=== PATIENT | male | born 1960 | race Caucasian/White ===

== ENCOUNTER 2017-11-01 10:48 | Inpatient (IN) | payer BC ==
[2017-11-01] MEDS ORDERED: ASPIRIN 81 MG CHEWABLE TABLETS PO ONE (12:28)
[2017-11-01 12:36] LABS: BASO % 0.7 % (0-2.0); EOS % 0.7 % (0-4.5); MCH 28.1 pg (25.7-33.7); MCHC 32.7 g/dl (32.0-35.9); MEAN CELL VOLUME 85.9 fl (80-96); MEAN PLT VOLUME 8.1 fl (7.5-11.1); NEUT % 75.7 % (42.8-82.8); PLATELET COUNT 247 K/MM3 (134-434); RDW 13.5 % (11.9-15.9); WHITE BLOOD COUNT 9.9 K/mm3 (4.0-10.0)
--- NOTE | 2017-11-01 12:37 | PDOC ---
History of Present Illness - History of Present Illness Initial Comments: 11/01/17 12:43 The patient is a 56 year old male, with a significant past medical history of CAD with cardiac stents, diabetes mellitus, gouts and hypertension who presents to the emergency department with chest pain and dizziness. Patient was brought in by radiology, states he began experiencing chest pain while doing a stress test. However he states that he has been experiencing chest pain that last for 2 mins every 2-3 days for 3 months. He states he took 1 baby aspirin today . He describes his chest pain and tightness as sharp, crushing, and radiates to his, left arm and shoulder and back. He also reports is experiencing SOB, diaphoresis. Reports no current chest pain. He denies any recent fevers, chills, headache. He denies any recent nausea, vomit, diarrhea or constipation. He denies any recent dysuria, frequency, urgency or hematuria. Allergies: NKA Past surgical history: Cardiac stents (7) Social History: Nonsmoker. Denies EtOH use and recreational drug use. Roadway Engineer: Nelly David 11/01/17 12:46 <Betsy Andres - Last Filed: 11/01/17 12:46> - General History Source: Patient Exam Limitations: No Limitations <Dae Shah - Last Filed: 11/01/17 17:22> - General Chief Complaint: Lightheaded Stated Complaint: CHEST PAIN,denies at this time. Time Seen by Provider: 11/01/17 11:55 Past History <Betsy Andres - Last Filed: 11/01/17 12:46> - Past Medical History Cardiac Disorders: Yes (stent 7) COPD: No Diabetes: Yes GI Disorders: Yes (celiac dis) HTN: Yes Psychiatric Problems: Yes (panic attacks) Other medical history: obesity,gout - Surgical History Abdominal Surgery: No (denies) - Suicide/Smoking/Psychosocial Hx Smoking History: Never smoked Information on smoking cessation initiated: No Hx Alcohol Use: No Drug/Substance Use Hx: No Substance Use Type: None <Dae Shah - Last Filed: 11/01/17 17:22> - Past Medical History Allergies/Adverse Reactions: Allergies Allergy/AdvReac Type Severity Reaction Status Date / Time No Known Allergies Allergy Verified 11/01/17 11:04 Home Medications: Ambulatory Orders Allopurinol [Zyloprim -] 100 mg PO DAILY 11/01/17 Aspirin [ASA -] 81 mg PO DAILY 11/01/17 Colchicine 0.6 mg PO DAILY PRN 11/01/17 Insulin (Novolog) [Novolog Flexpen -] 15 units SCJ AM 11/01/17 Insulin Glargine,Hum.rec.anlog [Lantus (10mL VIAL) -] 15 units SCJ HS 11/01/17 Metoprolol Tartrate 50 mg PO BID 11/01/17 Review of Systems - Review of Systems Comments:: 11/01/17 12:43 GENERAL/CONSTITUTIONAL: +diaphoresis. No fever or chills. No weakness. HEAD, EYES, EARS, NOSE AND THROAT: No change in vision. No ear pain or discharge. No sore throat. CARDIOVASCULAR: +chest pain. +shortness of breath. RESPIRATORY: No cough, wheezing, or hemoptysis. GASTROINTESTINAL: No nausea, vomiting, diarrhea or constipation. GENITOURINARY: No dysuria, frequency, or change in urination. MUSCULOSKELETAL: No joint or muscle swelling or pain. No neck or back pain. SKIN: No rash NEUROLOGIC: No headache, vertigo, loss of consciousness, or change in strength/ sensation. ENDOCRINE: No increased thirst. No abnormal weight change. HEMATOLOGIC/LYMPHATIC: No anemia, easy bleeding, or history of blood clots. ALLERGIC/IMMUNOLOGIC: No hives or skin allergy. <Betsy Andres - Last Filed: 11/01/17 12:46> *Physical Exam - Vital Signs Last Vital Signs Temp Pulse Resp BP Pulse Ox 97.5 F L 71 18 143/89 99 11/01/17 11:01 11/01/17 11:01 11/01/17 11:01 11/01/17 11:01 11/01/17 11:50 - Physical Exam Comments: 11/01/17 12:44 GENERAL: Awake, alert, and fully oriented, in no acute distress HEAD: No signs of trauma EYES: PERRLA, EOMI, sclera anicteric, conjunctiva clear ENT: Auricles normal inspection, hearing grossly normal, nares patent, oropharynx clear without exudates. Moist mucosa NECK: Normal ROM, supple, no lymphadenopathy, JVD, or masses LUNGS: Breath sounds equal, clear to auscultation bilaterally. No wheezes, and no crackles HEART: Regular rate and rhythm, normal S1 and S2, no murmurs, rubs or gallops ABDOMEN: Soft, nontender, normoactive bowel sounds. No guarding, no rebound. No masses EXTREMITIES: Normal range of motion, no edema. No clubbing or cyanosis. No cords, erythema, or tenderness NEUROLOGICAL: Cranial nerves II through XII grossly intact. Normal speech, normal gait SKIN: Warm, Dry, normal turgor, no rashes or lesions noted. <Betsy Andres - Last Filed: 11/01/17 12:46> - Vital Signs Last Vital Signs Temp Pulse Resp BP Pulse Ox 97.5 F L 71 18 143/89 99 11/01/17 11:01 11/01/17 11:01 11/01/17 11:01 11/01/17 11:01 11/01/17 11:50 <Dae Shah - Last Filed: 11/01/17 17:22> Heart Score/ECG Review - History History: Highly suspicious - Electrocardiogram EKG: Non specific repolarization disturbance - Age Age: 45-65 - Risk Factors Based on the list above the patient has:: >/=3 risk factors or Hx atherosclerotic disease #1 ECG reviewed & interpreted by me at: 10:55 11/01/17 12:38 NSR 76, no std/don, Q wave III, TWI V4-V5, QTC 375 msec <Dae Shah - Last Filed: 11/01/17 17:22> ED Treatment Course - LABORATORY CBC & Chemistry Diagram: 11/01/17 12:30 11/01/17 12:30 <Betsy Andres - Last Filed: 11/01/17 12:46> - LABORATORY CBC & Chemistry Diagram: 11/01/17 12:30 11/01/17 12:30 - RADIOLOGY Radiology Studies Ordered: Category Date Time Status CHEST X-RAY PORTABLE* [RAD] Stat Radiology 11/01/17 12:22 Ordered <Dae Shah - Last Filed: 11/01/17 17:22> Medical Decision Making - Medical Decision Making 11/01/17 12:39 A portion of this note was documented by scribe services under my direction. I have reviewed the details of the note, within reason, and agree with the documentation with the following case summary and management plan written by me. Patient treated in the ED. Nursing notes are reviewed and incorporated into the medical decision-making. Vital signs reviewed. Peripheral IV access obtained by the nurse, laboratory studies are drawn and sent, reviewed and interpreted by myself. Vital Signs Temp Pulse Resp BP Pulse Ox 97.5 F L 71 18 143/89 99 11/01/17 11:01 11/01/17 11:01 11/01/17 11:01 11/01/17 11:01 11/01/17 11:50 56-year-old male with past medical history of hypertension, diabetes, gout, coronary disease status post 7 stents presents with chest pain from stress test. The patient was undergoing an elective outpatient stress test when the patient developed midsternal chest pressure radiating to left shoulder and left arm with short of breath and diaphoresis and lasted 2 minutes. The patient did not have an injection or stress test. Stated the pain resolved on its own. The patient was sent to the ER. He denies symptoms at this time. I had spoken with the case with patient's can doffer Dr. Nelly De La Torre [phone]. She agrees with plan to admit and stress. Requests Dr. Finch's group. Case discussed with Dr. Hawkins who will see patient. Pt already took one baby aspirin prior. Will give another aspirin. Dr. Hawkins had saw the patient. Stated that this may have been anxiety and requests IV benzos and send patient back to stress test. 11/01/17 15:15 Initial trop is negative. I received a fax report from Dr. De La Torre. Pt has CAD s/p cath 04/26 at [facility] showed LAD proximal < 30% lesion, mid 30-50 % lesion, D1 50-60% lesion, RCA proximal 70-80% lesion, mid 80-90%, distal 89-90 % lesion, had PCI, LCx proximal 50-60% lesion, distal 70-80% lesion, OM1 80-90% lesion - had PCI in 05/26. Has hx of CKD with baseline Cr 1.9. Patient is cleared by DR. Hawkins to undergo stress test today. 11/01/17 17:21 Case discussed with [facility]. Admitted to telemetry admission under Dr. Prieto <Dae Shah - Last Filed: 11/01/17 17:22> *DC/Admit/Observation/Transfer - Attestations Scribe Attestion: 11/01/17 12:45 Documentation prepared by Betsy Andres, acting as adjunct faculty for medical terminology for Dae Shah MD. <Betsy Andres - Last Filed: 11/01/17 12:46> - Discharge Dispostion Admit: Yes <Dae Shah - Last Filed: 11/01/17 17:22> Diagnosis at time of Disposition: Chest pain Qualifiers: Chest pain type: unspecified Qualified Code(s): R07.9 - Chest pain, unspecified - Discharge Dispostion Condition at time of disposition: Stable
[2017-11-01 12:56] LABS: INR 1.13 (0.82-1.09); PROTHROMBIN TIME (PATIENT) 12.8 SEC (9.98-11.88)
[2017-11-01 12:58] LABS: ACTIVATED PTT 29.3 SECONDS (26.9-34.4)
[2017-11-01 12:59] LABS: ALBUMIN 4.1 g/dl (3.4-5.0); ANION GAP 9 (8-16); CO2 23 mmol/L (21-32); GLUCOSE,RANDOM 110 mg/dL (74-106); MAGNESIUM 1.7 mg/dL (1.8-2.4)
[2017-11-01 13:04] LABS: BILIRUBIN,TOTAL 0.4 mg/dL (0.2-1.0); CREATININE 1.9 mg/dL (0.7-1.3); PHOSPHOROUS 3.3 mg/dL (2.5-4.9); SGOT/AST 11 U/L (15-37); SGPT/ALT 27 U/L (12-78); TOT PROT 8.2 g/dl (6.4-8.2)
[2017-11-01 13:06] LABS: ALK PHOS 110 U/L (45-117); CPK 103 IU/L (39-308); TROPONIN I < 0.02 ng/ml (0.00-0.05)
[2017-11-01] MEDS ORDERED: ASPIRIN 81 MG CHEWABLE TABLETS ONE (13:24)
[2017-11-01] MEDS ORDERED: LORazepam 2 MG/ML SDV VIAL ONE (13:25)
--- NOTE | 2017-11-01 13:38 | CON.CARD ---
Consult Consult Specialty:: Cardiology Referred by:: Nelly Mak MD Reason for Consultation:: Chest pain - History of Present Illness Chief Complaint: Chest pain History of Present Illness: The patient is a 56 year old male with a significant past medical history of CAD post multivessel PCI (stent), diabetes mellitus, gout and hypertension referred to the emergency department with claustrophobia, chest pain, dizziness , could not lie flat and still for gamma camera for rest images. He reports stable chest pain with radiation to his left arm and shoulder and back associated with SOB, diaphoresis, ambulates with cane assistance, denies near or true syncope, palpitations, increase in baseline orthopnea, PND or LE edema. Allergies: NKA Past surgical history: Cardiac stents (7) Social History: Nonsmoker. Denies EtOH use and recreational drug use. Paint Line Supervisor: Nelly David MD - History Source History Provided By: Patient Limitations to Obtaining History: No Limitations - Alcohol/Substance Use Hx Alcohol Use: No - Smoking History Smoking history: Never smoked Home Medications - Allergies Allergies/Adverse Reactions: Allergies Allergy/AdvReac Type Severity Reaction Status Date / Time No Known Allergies Allergy Verified 11/01/17 11:04 - Home Medications Home Medications: Ambulatory Orders Allopurinol [Zyloprim -] 100 mg PO DAILY 11/01/17 Aspirin [ASA -] 81 mg PO DAILY 11/01/17 Colchicine 0.6 mg PO DAILY PRN 11/01/17 Insulin (Novolog) [Novolog Flexpen -] 15 units SCJ AM 11/01/17 Insulin Glargine,Hum.rec.anlog [Lantus (10mL VIAL) -] 15 units SCJ HS 11/01/17 Metoprolol Tartrate 50 mg PO BID 11/01/17 Review of Systems - Review of Systems Cardiovascular: reports: Chest Pain Psychiatric: reports: Anxiety, Panic Vital Signs: Vital Signs Temperature 97.5 F L 11/01/17 11:01 Pulse Rate 71 11/01/17 11:01 Respiratory Rate 18 11/01/17 11:01 Blood Pressure 143/89 11/01/17 11:01 O2 Sat by Pulse Oximetry (%) 99 11/01/17 11:50 Constitutional: Yes: No Distress, Calm Neck: Yes: Supple Respiratory: Yes: Regular, CTA Bilaterally Gastrointestinal: Yes: Normal Bowel Sounds, Soft Cardiovascular: Yes: Regular Rate and Rhythm JVD: No Carotid Bruit: No Heart Sounds: Yes: S1, S2 Edema: No - Other Data Labs, Other Data: CBC, BMP 11/01/17 12:30 11/01/17 12:30 INR, PTT INR 1.13 (0.82-1.09) 11/01/17 12:30 Troponin, BNP 11/01/17 12:30 Troponin I < 0.02 Troponin, BNP 11/01/17 12:30 Troponin I < 0.02 NSR @ 76 nonspec T wave changes Imaging - Results Chest X-ray: Pending Problem List - Problems (1) Claustrophobia Code(s): F40.240 - CLAUSTROPHOBIA (2) Hypertension Code(s): I10 - ESSENTIAL (PRIMARY) HYPERTENSION Qualifiers: Hypertension type: essential hypertension Qualified Code(s): I10 - Essential (primary) hypertension (3) Chest pain due to psychological stress Code(s): R07.9 - CHEST PAIN, UNSPECIFIED; F43.9 - REACTION TO SEVERE STRESS, UNSPECIFIED (4) Status post coronary artery stent placement Code(s): Z95.5 - PRESENCE OF CORONARY ANGIOPLASTY IMPLANT AND GRAFT (5) Coronary artery disease Code(s): I25.10 - ATHSCL HEART DISEASE OF [place] CORONARY ARTERY W/O ANG PCTRS Qualifiers: Coronary Disease-Associated Artery/Lesion type: [place] artery [place] vs. transplanted heart: [place] heart Associated angina: with stable angina Qualified Code(s): I25.118 - Atherosclerotic heart disease of [place] coronary artery with other forms of angina pectoris (6) Gout Code(s): M10.9 - GOUT, UNSPECIFIED Qualifiers: Gout site: unspecified site Assessment/Plan 1. Chest pain and dyspnea with claustrophobia, panic disorder 2. CAD s/p multivessel PCI (stent), angina pectoris 3. Gout 4. CKD with hyperkalemia P:1. Re-attempt imaging with anxiolytics 2. Continue ASA 81 qd, Lopressor 50 bid 3. F/u Persantine Myoview results and f/u with Dr. Nelly Mak 4. Thank you for consultative opportunity
[2017-11-01] MEDS ORDERED: REGADENOSON 0.4 MG/5 ML PRE-FILLED SYRINGE IVPUSH ONE (14:14)
[2017-11-01] MEDS ORDERED: SODIUM POLYSTYRENE SULFONATE 15 GM/60 ML BOTTLE PO ONE (14:29)
[2017-11-01] MEDS ORDERED: AMINOPHYLLINE 250 MG/10 ML VIAL ONE (14:49)
[2017-11-01] MEDS ORDERED: AMINOPHYLLINE 250 MG/10 ML VIAL IVPUSH ONE (14:50)
[2017-11-01] MEDS ORDERED: SODIUM POLYSTYRENE SULFONATE 15 GM/60 ML BOTTLE ONE (15:53)
[2017-11-01] MEDS: CLOPIDOGREL BISULFATE 75 MG TABLET (FP) PO SCH (16:45)
[2017-11-01] MEDS: amLODIPine BESYLATE 2.5 MG TABLET (FP) PO SCH (16:45)
[2017-11-01] MEDS ORDERED: amLODIPine BESYLATE 5 MG TABLET (FP) ONE (16:49)
[2017-11-01] MEDS ORDERED: CLOPIDOGREL BISULFATE 75 MG TABLET (FP) ONE (16:49)
[2017-11-01 17:44] LABS: ANION GAP 6 (8-16); CALCIUM 8.9 mg/dL (8.5-10.1); CO2 25 mmol/L (21-32); CREATININE 1.9 mg/dL (0.7-1.3); GLUCOSE,RANDOM 116 mg/dL (74-106); SGOT/AST 14 U/L (15-37); SGPT/ALT 27 U/L (12-78)
[2017-11-01 17:47] LABS: ALK PHOS 112 U/L (45-117); BILIRUBIN,TOTAL 0.6 mg/dL (0.2-1.0); CPK 102 IU/L (39-308); TROPONIN I < 0.02 ng/ml (0.00-0.05)
[2017-11-01] MEDS: SODIUM CHLORIDE 1,000 ML IV SCH (18:04)
--- NOTE | 2017-11-01 19:10 | HP ---
CHIEF COMPLAINT: Chest pain PCP: Dr. Ninoska Wynn, [facility] HISTORY OF PRESENT ILLNESS: 56 year-old male with a PMH significant for HTN, CAD s/p multivessel stents x 7 , IDDM, celiac disease, gout and anxiety/panic disorder. Patient was undergoing an outpatient stress test in the cardiology department when he experienced midsternal chest pressure radiating to left shoulder and left arm with shortness of breath and diaphoresis and lasted 2 minutes. The patient was sent to the ER, evaluated by Dr. Hawkins, hat and cap drying room attendant and treated for anxiety. He then underwent myoview stress testing which showed moderate to large inferior, inferoapical moderate ischemia with chest pain and ECG changes. Patient will be admitted and will be transferred for cardiac cath. ER course was notable for: (1) Positive myoview stress test (2) Troponin neg (3) K 5.7; kayexelate x 1 Recent Travel: No PAST MEDICAL HISTORY: Hypertension Coronary artery disease IDDM Gout PAST SURGICAL HISTORY: Cardiac stents x 7 Social History: Smoking: never Alcohol: no Drugs: no Family History: Allergies No Known Allergies Allergy (Verified 11/01/17 11:04) HOME MEDICATIONS: Medication Instructions Recorded Allopurinol [Zyloprim -] 100 mg PO DAILY 11/01/17 Aspirin [ASA -] 81 mg PO DAILY 11/01/17 Colchicine 0.6 mg PO DAILY PRN 11/01/17 Insulin (Novolog) [Novolog Flexpen 15 units SCJ AM 11/01/17 -] Insulin Glargine,Hum.rec.anlog 15 units SCJ HS 11/01/17 [Lantus (10mL VIAL) -] Metoprolol Tartrate 50 mg PO BID 11/01/17 REVIEW OF SYSTEMS CONSTITUTIONAL: Absent: fever, chills, diaphoresis, generalized weakness, malaise, loss of appetite, weight change HEENT: Absent: rhinorrhea, nasal congestion, throat pain, throat swelling, difficulty swallowing, mouth swelling, ear pain, eye pain, visual changes CARDIOVASCULAR: Present: chest pain, SOB Absent: syncope, palpitations, irregular heart rate, lightheadedness, peripheral edema RESPIRATORY: Absent: cough, dyspnea with exertion, orthopnea, wheezing, stridor, hemoptysis GASTROINTESTINAL: Absent: abdominal pain, abdominal distension, nausea, vomiting, diarrhea, constipation, melena, hematochezia GENITOURINARY: Absent: dysuria, frequency, urgency, hesitancy, hematuria, flank pain, genital pain MUSCULOSKELETAL: Absent: myalgia, arthralgia, joint swelling, back pain, neck pain SKIN: Absent: rash, itching, pallor HEMATOLOGIC/IMMUNOLOGIC: Absent: easy bleeding, easy bruising, lymphadenopathy, frequent infections ENDOCRINE: Absent: unexplained weight gain, unexplained weight loss, heat intolerance, cold intolerance NEUROLOGIC: Absent: headache, focal weakness or paresthesias, dizziness, unsteady gait, seizure, mental status changes, bladder or bowel incontinence PSYCHIATRIC: Absent: anxiety, depression, suicidal or homicidal ideation, hallucinations. PHYSICAL EXAMINATION Vital Signs - 24 hr 11/01/17 11/01/17 11/01/17 11:01 11:50 17:56 Temperature 97.5 F L 98.4 F Pulse Rate 71 Pulse Rate [ 103 H Apical] Respiratory 18 16 Rate Blood Pressure 143/89 Blood Pressure 145/85 [Left Arm] O2 Sat by Pulse 100 99 99 Oximetry (%) GENERAL: Awake, alert, and fully oriented, in no acute distress. HEAD: Normal with no signs of trauma. EYES: Pupils equal, round and reactive to light, extraocular movements intact, sclera anicteric, conjunctiva clear. No lid lag. EARS, NOSE, THROAT: Ears normal, nares patent, oropharynx clear without exudates. Moist mucous membranes. NECK: Normal range of motion, supple without lymphadenopathy, JVD, or masses. LUNGS: Breath sounds equal, clear to auscultation bilaterally. No wheezes, and no crackles. No accessory muscle use. HEART: Regular rate and rhythm, normal S1 and S2 without murmur, rub or gallop. ABDOMEN: Soft, nontender, not distended, normoactive bowel sounds, no guarding, no rebound, no masses. No hepatomegaly or splenomegaly. MUSCULOSKELETAL: Normal range of motion at all joints. No bony deformities or tenderness. No CVA tenderness. UPPER EXTREMITIES: 2+ pulses, warm, well-perfused. No cyanosis. No clubbing. No peripheral edema. LOWER EXTREMITIES: 2+ pulses, warm, well-perfused. No calf tenderness. No peripheral edema. NEUROLOGICAL: Cranial nerves II-XII intact. Normal speech. Normal gait. PSYCHIATRIC: Cooperative. Good eye contact. Appropriate mood and affect. SKIN: Warm, dry, normal turgor, no rashes or lesions noted, normal capillary refill. Laboratory Results - last 24 hr 11/01/17 11/01/17 11/01/17 12:30 12:30 12:30 WBC 9.9 RBC 4.83 Hgb 13.5 Hct 41.4 MCV 85.9 MCH 28.1 MCHC 32.7 RDW 13.5 Plt Count 247 MPV 8.1 Neutrophils % 75.7 Lymphocytes % 16.8 Monocytes % 6.1 Eosinophils % 0.7 Basophils % 0.7 PT with INR 12.80 H INR 1.13 PTT (Actin FS) 29.3 Sodium 138 Potassium 5.7 H Chloride 106 Carbon Dioxide 23 Anion Gap 9 BUN 24 H Creatinine 1.9 H Creat Clearance w eGFR 36.59 Random Glucose 110 H Calcium 9.0 Phosphorus 3.3 Magnesium 1.7 L Total Bilirubin 0.4 AST 11 L ALT 27 Alkaline Phosphatase 110 Creatine Kinase 103 Troponin I < 0.02 Total Protein 8.2 Albumin 4.1 11/01/17 11/01/17 16:50 18:00 WBC RBC Hgb Hct MCV MCH MCHC RDW Plt Count MPV Neutrophils % Lymphocytes % Monocytes % Eosinophils % Basophils % PT with INR INR PTT (Actin FS) Sodium 138 Potassium 5.5 H Chloride 107 Carbon Dioxide 25 Anion Gap 6 L BUN 25 H Creatinine 1.9 H Creat Clearance w eGFR 36.59 Random Glucose 116 H Calcium 8.9 Phosphorus Magnesium 1.7 L Total Bilirubin 0.6 D AST 14 L D ALT 27 Alkaline Phosphatase 112 Creatine Kinase 102 Troponin I < 0.02 Total Protein 8.0 Albumin 4.0 ASSESSMENT/PLAN 56 year-old male with a PMH significant for HTN, CAD s/p multivessel stents x 7 , IDDM, celiac disease, gout and anxiety/panic disorder. Positive stress test. Will be transferred for cardiac cath. Chest pain Coronary artery disease s/p stents x 7 --troponins neg x 3 --11/02 Myoview stress: showed moderate to large inferior, inferoapical moderate ischemia with chest pain and ECG changes --plan to transfer on Wednesday for cardiac cath --continue ASA, Lipitor, metoprolol, Plavix, IV hydration in anticipation of contrast dye Hypertension --BP well-controlled --continue amlodipine, metoprolol Hyperkalemia --kayexelate x 1 in ED --repeat pending Hypomagnesemia --replete DVT prophylaxis: oob, ambulation, SCDs Dispo: continues to require inpatient care. Full code. Visit type - Emergency Visit Emergency Visit: Yes ED Registration Date: 11/01/17 Care time: The patient presented to the Emergency Department on the above date and was hospitalized for further evaluation of their emergent condition. - New Patient This patient is new to me today: Yes Date on this admission: 11/02/17 - Critical Care Critical Care patient: No
[2017-11-01] MEDS ORDERED: RANOLAZINE E.R. 500 MG TABLET (FP) PO SCH (22:00)
[2017-11-01] MEDS ORDERED: ATORVASTATIN CA 40 MG TABLET (FP) ONE (22:34)
[2017-11-01] MEDS ORDERED: METOPROLOL TARTRATE 50 MG TABLET (FP) ONE (22:34)
[2017-11-01] MEDS: ATORVASTATIN CA 20 MG TABLET (FP) PO SCH (22:38)
[2017-11-01] MEDS: METOPROLOL TARTRATE 50 MG TABLET (FP) PO SCH (22:38)
--- NOTE | 2017-11-02 01:21 | EKG ---
Test Reason : Blood Pressure : / mmHG Vent. Rate : 076 BPM Atrial Rate : 076 BPM P-R Int : 194 ms QRS Dur : 090 ms QT Int : 334 ms P-R-T Axes : 052 -23 033 degrees QTc Int : 375 ms NORMAL SINUS RHYTHM INFERIOR INFARCT , AGE UNDETERMINED ABNORMAL ECG NO PREVIOUS ECGS AVAILABLE Confirmed by ELAINE PANDA MD ([id number]) on 11/02/2017 1:21:03 AM Referred By: Confirmed By:ELAINE PANDA MD
[2017-11-02] MEDS: SODIUM CHLORIDE 1,000 ML IV SCH ×2 (03:21→14:42)
--- NOTE | 2017-11-02 07:03 | PN ---
Progress Note (short form) - Note Progress Note: Chief Complaint: Events noted, notes reviewed, denies any further chest pain, denies any dyspnea History of Present Illness: Seen and examined on telemetry. Events noted, notes reviewed, denies any further chest pain, denies any dyspnea Plan to proceed with LHC& coronary angiography for further evaluation and possible intervention, provided renal function is stabilized Echocardiography dated 10/20/2016 revealed Mild LVH, mild LAE, normal LV systolic function, grade I diastolic dysfunction, mild mitral regurgitation LHC& coronary angiography dated 04/2012 revealed proximal LAD <30% mid LAD 30-50% , LAD-D1 50-60%, proximal RCA 70-80%, mid RCA 80-90%, distal RCA 80-90%-> PCI proximal LCx 50-60%, distal LCx 80-90%, LCx-OM1 80-90%-> PCI Lexiscan Myoview showed moderate to large size inferior, infero-apical defect moderate ischemia with chest pain and EKG changes with vasodilator stress Medications: Current Medications Amlodipine Besylate (Norvasc -) 2.5 mg PO DAILY [facility] Last Admin: 11/01/17 16:45 Dose: 2.5 mg Aspirin (Asa -) 81 mg PO DAILY [facility] Atorvastatin Calcium (Lipitor -) 20 mg PO HS [facility] Last Admin: 11/01/17 22:38 Dose: 20 mg Clopidogrel Bisulfate (Plavix -) 75 mg PO DAILY [facility] Last Admin: 11/01/17 16:45 Dose: 75 mg Sodium Chloride (Normal Saline -) 1,000 mls @ 100 mls/hr IV ASDIR [facility] Last Admin: 11/02/17 03:21 Dose: 100 mls/hr Metoprolol Tartrate (Lopressor -) 50 mg PO BID [facility] Last Admin: 11/01/17 22:38 Dose: 50 mg Review of Systems Vital Signs: Last Vital Signs Temp Pulse Resp BP Pulse Ox 97.7 F 72 16 141/76 100 11/02/17 05:00 11/02/17 05:00 11/02/17 05:00 11/02/17 05:00 11/02/17 02:06 Intake & Output 10/30/17 10/31/17 11/01/17 11/02/17 23:59 23:59 23:59 23:59 Intake Total 150 450 Balance 150 450 Weight 250 lb 246 lb 8 oz Constitutional: No Distress, Calm Neck: Supple Respiratory: Clear to A&P Bilaterally Cardiovascular: S1 S2 Regular Rate and Rhythm Gastrointestinal: Soft Benign Normal Bowel Sounds Ext: No Edema Labs: CBC, BMP 11/02/17 06:00 Troponin, BNP 11/01/17 11/01/17 11/02/17 12:30 16:50 00:30 Troponin I < 0.02 < 0.02 < 0.02 Hepatic Panel Total Bilirubin 0.6 mg/dL (0.2-1.0) D 11/01/17 16:50 AST 14 U/L (15-37) L D 11/01/17 16:50 ALT 27 U/L (12-78) 11/01/17 16:50 Alkaline Phosphatase 112 U/L (45-117) 11/01/17 16:50 Albumin 4.0 g/dl (3.4-5.0) 11/01/17 16:50 INR, PTT INR 1.19 (0.82-1.09) H 11/02/17 06:00 BMP from this AM is still pending Assessment/Plan ASSESSMENT: 1. CAD post multi-vessel PCI (stent) abnormal MPI study, angina pectoris for LHC & coronary angiography 2. Diastolic LV dysfunction with class 0 NYHA classification LV failure 3. HTN 4. DM 5. Hypercholesterolemia 6. Acute on CKD with hyperkalemia PLAN: 1. Continue ASA and Plavix 2. Continue Lopressor 3. Continue Norvasc 4. Continue Lipitor 5. Continue IV fluid hydration with NS pending procedure 6. Add Ranexa 7. Await BMP from this AM and plan to proceed with LHC& coronary angiography at [facility], above was discussed in detail with the patient risk, benefits and alternatives were reviewed Graciela Davalos MD
[2017-11-02 07:54] LABS: BASO % 0.6 % (0-2.0); EOS % 1.3 % (0-4.5); MEAN CELL VOLUME 87.5 fl (80-96); MEAN PLT VOLUME 8.7 fl (7.5-11.1); NEUT % 68.2 % (42.8-82.8); PLATELET COUNT 242 K/MM3 (134-434); RDW 13.8 % (11.9-15.9); WHITE BLOOD COUNT 8.8 K/mm3 (4.0-10.0)
[2017-11-02 08:13] LABS: ALBUMIN 3.1 g/dl (3.4-5.0); ALK PHOS 86 U/L (45-117); ANION GAP 8 (8-16); BILIRUBIN,TOTAL 0.4 mg/dL (0.2-1.0); CO2 22 mmol/L (21-32); CREATININE 1.5 mg/dL (0.7-1.3); GLUCOSE,RANDOM 90 mg/dL (74-106); MAGNESIUM 1.4 mg/dL (1.8-2.4); PHOSPHOROUS 3.6 mg/dL (2.5-4.9); SGOT/AST 8 U/L (15-37); SGPT/ALT 21 U/L (12-78); TOT PROT 6.3 g/dl (6.4-8.2)
[2017-11-02 08:16] LABS: INR 1.19 (0.82-1.09); PROTHROMBIN TIME (PATIENT) 13.4 SEC (9.98-11.88)
[2017-11-02 08:19] LABS: ACTIVATED PTT 28.8 SECONDS (26.9-34.4)
[2017-11-02 08:33] LABS: CALCIUM 6.6 mg/dL (8.5-10.1)
[2017-11-02 08:53] LABS: CHOLESTEROL 154 mg/dL (50-200)
[2017-11-02 09:02] LABS: CPK 88 IU/L (39-308); TROPONIN I < 0.02 ng/ml (0.00-0.05)
[2017-11-02] MEDS: ASPIRIN 81 MG CHEWABLE TABLETS PO SCH (09:24)
[2017-11-02] MEDS: METOPROLOL TARTRATE 50 MG TABLET (FP) PO SCH ×2 (09:24→21:07)
[2017-11-02] MEDS: amLODIPine BESYLATE 2.5 MG TABLET (FP) PO SCH (09:24)
[2017-11-02] MEDS: CLOPIDOGREL BISULFATE 75 MG TABLET (FP) PO SCH (09:24)
[2017-11-02] MEDS: RANOLAZINE E.R. 500 MG TABLET (FP) PO SCH ×2 (09:25→21:07)
[2017-11-02 09:52] LABS: BASO % 0.7 % (0-2.0); MCH 28.3 pg (25.7-33.7); MCHC 32.6 g/dl (32.0-35.9); MEAN CELL VOLUME 86.9 fl (80-96); MEAN PLT VOLUME 8.6 fl (7.5-11.1); NEUT % 71.8 % (42.8-82.8); PLATELET COUNT 232 K/MM3 (134-434); RDW 13.8 % (11.9-15.9); WHITE BLOOD COUNT 7.9 K/mm3 (4.0-10.0)
[2017-11-02 10:05] LABS: INR 1.17 (0.82-1.09); PROTHROMBIN TIME (PATIENT) 13.2 SEC (9.98-11.88)
[2017-11-02 10:08] LABS: ACTIVATED PTT 30.8 SECONDS (26.9-34.4)
[2017-11-02 10:54] LABS: ALBUMIN 3.7 g/dl (3.4-5.0); ANION GAP 8 (8-16); CALCIUM 8.5 mg/dL (8.5-10.1); CHOLESTEROL 184 mg/dL (50-200); CO2 23 mmol/L (21-32); CREATININE 1.8 mg/dL (0.7-1.3); GLUCOSE,RANDOM 144 mg/dL (74-106); MAGNESIUM 1.7 mg/dL (1.8-2.4); PHOSPHOROUS 4.2 mg/dL (2.5-4.9); SGOT/AST 13 U/L (15-37); SGPT/ALT 27 U/L (12-78)
[2017-11-02 11:01] LABS: ALK PHOS 102 U/L (45-117); BILIRUBIN,TOTAL 0.6 mg/dL (0.2-1.0); CPK 109 IU/L (39-308); THYROID STIMULATING HORMONE 0.47 uIU/ml (0.358-3.74); TOT PROT 7.6 g/dl (6.4-8.2); TROPONIN I < 0.02 ng/ml (0.00-0.05)
--- NOTE | 2017-11-02 14:16 | PN ---
Physical Exam: SUBJECTIVE: Patient seen and examined at bedside. Appears quite comfortable. Voices no complaints. OBJECTIVE: Vital Signs Period Temp Pulse Resp BP Sys/Green Pulse Ox Last 24 Hr 97.7 F-98.4 F 68-103 16-18 130-145/76-89 98-100 GENERAL: The patient is awake, alert, and fully oriented, in no acute distress. HEAD: Normal with no signs of trauma. EYES: PERRL, extraocular movements intact, sclera anicteric, conjunctiva clear. No ptosis. ENT: Ears normal, nares patent, oropharynx clear without exudates, moist mucous membranes. NECK: Trachea midline, full range of motion, supple. LUNGS: Breath sounds equal, clear to auscultation bilaterally, no wheezes, no crackles, no accessory muscle use. HEART: Regular rate and rhythm, S1, S2 without murmur, rub or gallop. ABDOMEN: Soft, nontender, nondistended, normoactive bowel sounds, no guarding, no rebound, no hepatosplenomegaly, no masses. EXTREMITIES: 2+ pulses, warm, well-perfused, no edema. NEUROLOGICAL: Cranial nerves II through XII grossly intact. Normal speech, gait not observed. PSYCH: Normal mood, normal affect. SKIN: Warm, dry, normal turgor, no rashes or lesions noted Laboratory Results - last 24 hr 11/01/17 11/01/17 11/02/17 16:50 18:00 00:30 WBC RBC Hgb Hct MCV MCH MCHC RDW Plt Count MPV Neutrophils % Lymphocytes % Monocytes % Eosinophils % Basophils % PT with INR INR PTT (Actin FS) Sodium 138 Potassium 5.5 H Chloride 107 Carbon Dioxide 25 Anion Gap 6 L BUN 25 H Creatinine 1.9 H Creat Clearance w eGFR 36.59 POC Glucometer Random Glucose 116 H Hemoglobin A1c % Calcium 8.9 Phosphorus Magnesium 1.7 L Total Bilirubin 0.6 D AST 14 L D ALT 27 Alkaline Phosphatase 112 Creatine Kinase 102 Troponin I < 0.02 < 0.02 Total Protein 8.0 Albumin 4.0 Triglycerides Cholesterol Total LDL Cholesterol HDL Cholesterol TSH 11/02/17 11/02/17 11/02/17 06:00 06:00 06:00 WBC 8.8 RBC 4.38 Hgb 12.3 Hct 38.3 MCV 87.5 MCH 28.0 MCHC 32.0 RDW 13.8 Plt Count 242 MPV 8.7 Neutrophils % 68.2 Lymphocytes % 20.4 D Monocytes % 9.5 Eosinophils % 1.3 D Basophils % 0.6 PT with INR 13.40 H INR 1.19 H PTT (Actin FS) 28.8 Sodium Cancelled Potassium Cancelled Chloride Cancelled Carbon Dioxide Cancelled Anion Gap Cancelled BUN Cancelled Creatinine Cancelled Creat Clearance w eGFR POC Glucometer Random Glucose Cancelled Hemoglobin A1c % Calcium Cancelled Phosphorus Magnesium Total Bilirubin AST ALT Alkaline Phosphatase Creatine Kinase Cancelled Troponin I Cancelled Total Protein Albumin Triglycerides Cancelled Cholesterol Cancelled Total LDL Cholesterol Cancelled HDL Cholesterol Cancelled TSH Cancelled 11/02/17 11/02/17 11/02/17 06:00 06:00 06:04 WBC RBC Hgb Hct MCV MCH MCHC RDW Plt Count MPV Neutrophils % Lymphocytes % Monocytes % Eosinophils % Basophils % PT with INR INR PTT (Actin FS) Sodium 144 Potassium 3.8 D Chloride 114 H Carbon Dioxide 22 Anion Gap 8 BUN 23 H Creatinine 1.5 H D Creat Clearance w eGFR 48.07 POC Glucometer 109 Random Glucose 90 D Hemoglobin A1c % 6.6 H Calcium 6.6 L* D Phosphorus 3.6 Magnesium 1.4 L Total Bilirubin 0.4 D AST 8 L D ALT 21 D Alkaline Phosphatase 86 D Creatine Kinase 88 Troponin I < 0.02 Total Protein 6.3 L D Albumin 3.1 L D Triglycerides 107 Cholesterol 154 Total LDL Cholesterol 110 H HDL Cholesterol 33 L TSH 0.50 11/02/17 11/02/17 11/02/17 09:38 09:38 09:38 WBC 7.9 RBC 4.68 Hgb 13.3 Hct 40.7 MCV 86.9 MCH 28.3 MCHC 32.6 RDW 13.8 Plt Count 232 MPV 8.6 Neutrophils % 71.8 Lymphocytes % 17.6 Monocytes % 8.9 Eosinophils % 1.0 Basophils % 0.7 PT with INR 13.20 H INR 1.17 H PTT (Actin FS) 30.8 Sodium 138 Potassium 4.9 D Chloride 107 Carbon Dioxide 23 Anion Gap 8 BUN 26 H Creatinine 1.8 H Creat Clearance w eGFR 38.95 POC Glucometer Random Glucose 144 H D Hemoglobin A1c % Calcium 8.5 D Phosphorus 4.2 Magnesium 1.7 L D Total Bilirubin 0.6 D AST 13 L D ALT 27 D Alkaline Phosphatase 102 Creatine Kinase 109 Troponin I < 0.02 Total Protein 7.6 D Albumin 3.7 Triglycerides 144 D Cholesterol 184 Total LDL Cholesterol 127 H HDL Cholesterol 39 L TSH 0.47 D 11/02/17 11:23 WBC RBC Hgb Hct MCV MCH MCHC RDW Plt Count MPV Neutrophils % Lymphocytes % Monocytes % Eosinophils % Basophils % PT with INR INR PTT (Actin FS) Sodium Potassium Chloride Carbon Dioxide Anion Gap BUN Creatinine Creat Clearance w eGFR POC Glucometer 119 Random Glucose Hemoglobin A1c % Calcium Phosphorus Magnesium Total Bilirubin AST ALT Alkaline Phosphatase Creatine Kinase Troponin I Total Protein Albumin Triglycerides Cholesterol Total LDL Cholesterol HDL Cholesterol TSH Active Medications Generic Name Dose Route Start Last Admin Trade Name Freq PRN Reason Stop Dose Admin Amlodipine Besylate 2.5 mg 11/01/17 16:45 11/02/17 09:24 Norvasc - PO 2.5 mg DAILY LUIS F Administration Aspirin 81 mg 11/02/17 10:00 11/02/17 09:24 Asa - PO 81 mg DAILY LUIS F Administration Atorvastatin Calcium 20 mg 11/01/17 22:00 11/01/17 22:38 Lipitor - PO 20 mg HS LUIS F Administration Clopidogrel Bisulfate 75 mg 11/01/17 16:38 11/02/17 09:24 Plavix - PO 75 mg DAILY LUIS F Administration Sodium Chloride 1,000 mls @ 100 mls/hr 11/02/17 13:45 Normal Saline - IV ASDIR [facility] Insulin Aspart 1 vial 11/02/17 16:30 Novolog Vial Sliding Scale - SQ ACHS [facility] Protocol Insulin Detemir 15 units 11/02/17 22:00 Levemir Vial SQ HS [facility] Metoprolol Tartrate 50 mg 11/01/17 22:00 11/02/17 09:24 Lopressor - PO 50 mg BID LUIS F Administration Ranolazine 500 mg 11/02/17 10:00 11/02/17 09:25 Ranexa - PO 500 mg BID LUIS F Administration ASSESSMENT/PLAN 56 year-old male with a PMH significant for HTN, CAD s/p multivessel stents x 7 , IDDM, celiac disease, gout and anxiety/panic disorder. Positive stress test. Will be transferred for cardiac cath. Chest pain Coronary artery disease s/p stents x 7 --troponins neg x 3 --11/02 Myoview stress: moderate to large inferior, inferoapical moderate ischemia with chest pain and ECG changes --plan to transfer tomorrow for cardiac cath --continue ASA, Lipitor, metoprolol, Plavix, IV hydration in anticipation of contrast dye; Ranexa added Hypertension --BP well-controlled --continue amlodipine, metoprolol Hyperkalemia --resolved Hypomagnesemia --repleted DVT prophylaxis: subq heparin, oob, ambulation Dispo: continues to require inpatient care. Plan is for C and coronary angiography tomorrow at [facility]. Full code. Visit type - Emergency Visit Emergency Visit: Yes ED Registration Date: 11/01/17 Care time: The patient presented to the Emergency Department on the above date and was hospitalized for further evaluation of their emergent condition. - New Patient This patient is new to me today: No - Critical Care Critical Care patient: No
[2017-11-02] MEDS: HEPARIN NA (PORCINE) 5,000 UNITS/ML 1ML VIAL SQ SCH ×2 (14:43→21:07)
[2017-11-02] MEDS ORDERED: MAGNESIUM SULF 50% (8.12 MEQ/2 ML-1 GM VIAL) IVPB ONE (14:45)
[2017-11-02] MEDS: INSULIN SLIDING SCALE (NOVOLOG) 1 VIAL SQ SCH ×2 (16:47→21:07)
[2017-11-02] MEDS: INSULIN DETEMIR 100 UNITS/ML MDV SQ SCH (21:07)
[2017-11-02] MEDS: ATORVASTATIN CA 20 MG TABLET (FP) PO SCH (21:07)
[2017-11-03] MEDS: HEPARIN NA (PORCINE) 5,000 UNITS/ML 1ML VIAL SQ SCH ×3 (06:01→21:06)
[2017-11-03] MEDS: INSULIN SLIDING SCALE (NOVOLOG) 1 VIAL SQ SCH ×4 (06:01→21:07)
[2017-11-03 08:08] LABS: BASO % 1.2 % (0-2.0); EOS % 2.7 % (0-4.5); MCH 28.2 pg (25.7-33.7); NEUT % 64.3 % (42.8-82.8); PLATELET COUNT 261 K/MM3 (134-434); WHITE BLOOD COUNT 9.9 K/mm3 (4.0-10.0)
[2017-11-03 08:54] LABS: CALCIUM 8.6 mg/dL (8.5-10.1)
[2017-11-03 09:00] LABS: ALK PHOS 111 U/L (45-117); ANION GAP 10 (8-16); BILIRUBIN,TOTAL 0.4 mg/dL (0.2-1.0); CO2 22 mmol/L (21-32); GLUCOSE,RANDOM 104 mg/dL (74-106); SGOT/AST 14 U/L (15-37); SGPT/ALT 28 U/L (12-78); TOT PROT 7.9 g/dl (6.4-8.2)
--- NOTE | 2017-11-03 09:06 | PN ---
Progress Note, Physician History of Present Illness: Denies further exertional dyspnea or angina on antianginals. Cr increased. - Current Medication List Current Medications: Active Medications Amlodipine Besylate (Norvasc -) 2.5 mg PO DAILY [facility] Last Admin: 11/02/17 09:24 Dose: 2.5 mg Aspirin (Asa -) 81 mg PO DAILY [facility] Last Admin: 11/02/17 09:24 Dose: 81 mg Atorvastatin Calcium (Lipitor -) 20 mg PO HS [facility] Last Admin: 11/02/17 21:07 Dose: 20 mg Clopidogrel Bisulfate (Plavix -) 75 mg PO DAILY [facility] Last Admin: 11/02/17 09:24 Dose: 75 mg Heparin Sodium (Porcine) (Heparin -) 5,000 unit SQ TID [facility] Last Admin: 11/03/17 06:01 Dose: 5,000 unit Sodium Chloride (Normal Saline -) 1,000 mls @ 100 mls/hr IV ASDIR [facility] Last Admin: 11/02/17 14:42 Dose: 100 mls/hr Insulin Aspart (Novolog Vial Sliding Scale -) 1 vial SQ [facility] PRN Reason: Protocol Last Admin: 11/03/17 06:01 Dose: Not Given Insulin Detemir (Levemir Vial) 15 units SQ [facility] Last Admin: 11/02/17 21:07 Dose: Not Given Metoprolol Tartrate (Lopressor -) 50 mg PO BID [facility] Last Admin: 11/02/17 21:07 Dose: 50 mg Ranolazine (Ranexa -) 500 mg PO BID [facility] Last Admin: 11/02/17 21:07 Dose: 500 mg - Objective Vital Signs: Vital Signs Temperature 97.6 F 11/03/17 06:00 Pulse Rate 80 11/03/17 06:00 Respiratory Rate 20 11/03/17 06:00 Blood Pressure 152/82 11/03/17 06:00 O2 Sat by Pulse Oximetry (%) 98 11/02/17 21:00 Constitutional: Yes: No Distress, Calm Neck: Yes: Supple Cardiovascular: Yes: Regular Rate and Rhythm Respiratory: Yes: Regular, CTA Bilaterally Gastrointestinal: Yes: Normal Bowel Sounds, Soft Edema: No Labs: CBC, BMP 11/03/17 05:35 11/03/17 05:35 INR, PTT INR 1.17 (0.82-1.09) H 11/02/17 09:38 Problem List - Problems (1) Hypertension Code(s): I10 - ESSENTIAL (PRIMARY) HYPERTENSION Qualifiers: Hypertension type: essential hypertension Qualified Code(s): I10 - Essential (primary) hypertension (2) Chest pain due to psychological stress Code(s): R07.9 - CHEST PAIN, UNSPECIFIED; F43.9 - REACTION TO SEVERE STRESS, UNSPECIFIED (3) Status post coronary artery stent placement Code(s): Z95.5 - PRESENCE OF CORONARY ANGIOPLASTY IMPLANT AND GRAFT (4) Coronary artery disease Code(s): I25.10 - ATHSCL HEART DISEASE OF [place] CORONARY ARTERY W/O ANG PCTRS Qualifiers: Coronary Disease-Associated Artery/Lesion type: [place] artery [place] vs. transplanted heart: [place] heart Associated angina: with stable angina Qualified Code(s): I25.118 - Atherosclerotic heart disease of [place] coronary artery with other forms of angina pectoris (5) Gout Code(s): M10.9 - GOUT, UNSPECIFIED Qualifiers: Gout site: unspecified site (6) [id number] kidney injury Code(s): N17.9 - ACUTE KIDNEY FAILURE, UNSPECIFIED; N18.9 - CHRONIC KIDNEY DISEASE, UNSPECIFIED Qualifiers: Chronic kidney disease stage: stage 3 (moderate) Assessment/Plan Echocardiography dated 10/20/2016 revealed Mild LVH, mild LAE, normal LV systolic function, grade I diastolic dysfunction, mild mitral regurgitation [facility]& coronary angiography dated 04/2012 revealed proximal LAD <30% mid LAD 30-50% , LAD-D1 50-60%, proximal RCA 70-80%, mid RCA 80-90%, distal RCA 80-90%-> PCI proximal LCx 50-60%, distal LCx 80-90%, LCx-OM1 80-90%-> PCI Lexiscan Myoview showed moderate to large size inferior, infero-apical defect moderate ischemia with chest pain and EKG changes with vasodilator stress 1. Chest pain and dyspnea with claustrophobia, panic disorder 2. CAD s/p multivessel PCI (stent), angina pectoris 3. Gout 4. Acute on CKD with resolved hyperkalemia P: 1. Continue ASA 81 qd, Plavix 75 qd, Lopressor 50 bid, increase Norvasc 5 qd , Lipitor 20 qhs, Ranexa 500 bid 2. IV hydration, LHC to evaluate for ISR vs disease progression once renal fxn stabilizes, renal input requested
--- NOTE | 2017-11-03 09:10 | PN ---
Physical Exam: SUBJECTIVE: Patient seen and examined. No fruther episodes of chest pain. OBJECTIVE: Vital Signs Period Temp Pulse Resp BP Sys/Green Pulse Ox Last 24 Hr 97.5 F-98.3 F 64-80 18-20 129-152/76-83 98 GENERAL: The patient is awake, alert, and fully oriented, in no acute distress. HEAD: Normal with no signs of trauma. EYES: PERRL, extraocular movements intact, sclera anicteric, conjunctiva clear. No ptosis. ENT: Ears normal, nares patent, oropharynx clear without exudates, moist mucous membranes. NECK: Trachea midline, full range of motion, supple. LUNGS: Breath sounds equal, clear to auscultation bilaterally, no wheezes, no crackles, no accessory muscle use. HEART: Regular rate and rhythm, S1, S2 without murmur, rub or gallop. ABDOMEN: Soft, nontender, nondistended, normoactive bowel sounds, no guarding, no rebound, no hepatosplenomegaly, no masses. EXTREMITIES: 2+ pulses, warm, well-perfused, no edema. NEUROLOGICAL: Cranial nerves II through XII grossly intact. Normal speech, gait not observed. PSYCH: Normal mood, normal affect. SKIN: Warm, dry, normal turgor, no rashes or lesions noted Laboratory Results - last 24 hr 11/01/17 11/02/17 11/02/17 09:38 06:00 09:38 WBC 7.9 RBC 4.68 Hgb 13.3 Hct 40.7 MCV 86.9 MCH 28.3 MCHC 32.6 RDW 13.8 Plt Count 232 MPV 8.6 Neutrophils % 71.8 Lymphocytes % 17.6 Monocytes % 8.9 Eosinophils % 1.0 Basophils % 0.7 PT with INR INR PTT (Actin FS) Sodium Cancelled Potassium Cancelled Chloride Cancelled Carbon Dioxide Cancelled Anion Gap Cancelled BUN Cancelled Creatinine Cancelled Creat Clearance w eGFR POC Glucometer Random Glucose Cancelled Calcium Cancelled Phosphorus Magnesium Total Bilirubin AST ALT Alkaline Phosphatase Creatine Kinase Cancelled Troponin I Cancelled Cancelled Total Protein Albumin Triglycerides Cancelled Cholesterol Cancelled Total LDL Cholesterol Cancelled HDL Cholesterol Cancelled TSH Cancelled 11/02/17 11/02/17 11/02/17 09:38 09:38 11:23 WBC RBC Hgb Hct MCV MCH MCHC RDW Plt Count MPV Neutrophils % Lymphocytes % Monocytes % Eosinophils % Basophils % PT with INR 13.20 H INR 1.17 H PTT (Actin FS) 30.8 Sodium 138 Potassium 4.9 D Chloride 107 Carbon Dioxide 23 Anion Gap 8 BUN 26 H Creatinine 1.8 H Creat Clearance w eGFR 38.95 POC Glucometer 119 Random Glucose 144 H D Calcium 8.5 D Phosphorus 4.2 Magnesium 1.7 L D Total Bilirubin 0.6 D AST 13 L D ALT 27 D Alkaline Phosphatase 102 Creatine Kinase 109 Troponin I < 0.02 Total Protein 7.6 D Albumin 3.7 Triglycerides 144 D Cholesterol 184 Total LDL Cholesterol 127 H HDL Cholesterol 39 L TSH 0.47 D 11/02/17 11/02/17 11/03/17 16:45 20:55 05:29 WBC RBC Hgb Hct MCV MCH MCHC RDW Plt Count MPV Neutrophils % Lymphocytes % Monocytes % Eosinophils % Basophils % PT with INR INR PTT (Actin FS) Sodium Potassium Chloride Carbon Dioxide Anion Gap BUN Creatinine Creat Clearance w eGFR POC Glucometer 92 92 91 Random Glucose Calcium Phosphorus Magnesium Total Bilirubin AST ALT Alkaline Phosphatase Creatine Kinase Troponin I Total Protein Albumin Triglycerides Cholesterol Total LDL Cholesterol HDL Cholesterol TSH 11/03/17 11/03/17 05:35 05:35 WBC 9.9 RBC 4.79 Hgb 13.5 Hct 42.2 MCV 88.0 MCH 28.2 MCHC 32.0 RDW 14.0 Plt Count 261 MPV 9.0 Neutrophils % 64.3 Lymphocytes % 22.6 D Monocytes % 9.2 Eosinophils % 2.7 D Basophils % 1.2 PT with INR INR PTT (Actin FS) Sodium 138 Potassium 4.3 Chloride 106 Carbon Dioxide 22 Anion Gap 10 BUN 29 H Creatinine 2.0 H Creat Clearance w eGFR 34.49 POC Glucometer Random Glucose 104 D Calcium 8.6 Phosphorus Magnesium Total Bilirubin 0.4 D AST 14 L ALT 28 Alkaline Phosphatase 111 Creatine Kinase Troponin I Total Protein 7.9 Albumin 4.0 Triglycerides Cholesterol Total LDL Cholesterol HDL Cholesterol TSH Active Medications Generic Name Dose Route Start Last Admin Trade Name Freq PRN Reason Stop Dose Admin Amlodipine Besylate 2.5 mg 11/01/17 16:45 11/02/17 09:24 Norvasc - PO 2.5 mg DAILY LUIS F Administration Aspirin 81 mg 11/02/17 10:00 11/02/17 09:24 Asa - PO 81 mg DAILY LUIS F Administration Atorvastatin Calcium 20 mg 11/01/17 22:00 11/02/17 21:07 Lipitor - PO 20 mg HS LUIS F Administration Clopidogrel Bisulfate 75 mg 11/01/17 16:38 11/02/17 09:24 Plavix - PO 75 mg DAILY LUIS F Administration Heparin Sodium (Porcine) 5,000 unit 11/02/17 14:15 11/03/17 06:01 Heparin - SQ 5,000 unit TID LUIS F Administration Sodium Chloride 1,000 mls @ 100 mls/hr 11/02/17 13:45 11/02/17 14:42 Normal Saline - IV 100 mls/hr ASDIR LUIS F Administration Insulin Aspart 1 vial 11/02/17 16:30 11/03/17 06:01 Novolog Vial Sliding Scale - SQ Not Given ACHS [facility] Protocol Insulin Detemir 15 units 11/02/17 22:00 11/02/17 21:07 Levemir Vial SQ Not Given HS LUIS F Metoprolol Tartrate 50 mg 11/01/17 22:00 11/02/17 21:07 Lopressor - PO 50 mg BID LUIS F Administration Ranolazine 500 mg 11/02/17 10:00 11/02/17 21:07 Ranexa - PO 500 mg BID LUIS F Administration ASSESSMENT/PLAN 56 year-old male with a PMH significant for HTN, CAD s/p multivessel stents x 7 , IDDM, celiac disease, gout and anxiety/panic disorder. Positive stress test. Will be transferred for cardiac cath. Chest pain Coronary artery disease s/p stents x 7 --troponins neg x 3 --11/02 Myoview stress: moderate to large inferior, inferoapical moderate ischemia with chest pain and ECG changes --transfer for cath delayed because of elevated Cr --seen and evaluated by renal, renal function is at baseline; continue IV fluids to maximize function prior to cath --continue ASA, Lipitor, metoprolol, Plavix, Ranexa Hypertension --BP well-controlled --continue amlodipine, metoprolol Hyperkalemia --resolved Hypomagnesemia --repleted DVT prophylaxis: subq heparin, oob, ambulation Dispo: continues to require inpatient care. Plan is for [facility] and coronary angiography at [facility]. Full code. Visit type - Emergency Visit Emergency Visit: Yes ED Registration Date: 11/01/17 Care time: The patient presented to the Emergency Department on the above date and was hospitalized for further evaluation of their emergent condition. - New Patient This patient is new to me today: No - Critical Care Critical Care patient: No
[2017-11-03] MEDS: CLOPIDOGREL BISULFATE 75 MG TABLET (FP) PO SCH (09:37)
[2017-11-03] MEDS: ASPIRIN 81 MG CHEWABLE TABLETS PO SCH (09:38)
[2017-11-03] MEDS: METOPROLOL TARTRATE 50 MG TABLET (FP) PO SCH ×2 (09:38→21:07)
[2017-11-03] MEDS: RANOLAZINE E.R. 500 MG TABLET (FP) PO SCH ×2 (09:38→21:07)
[2017-11-03] MEDS: amLODIPine BESYLATE 5 MG TABLET (FP) PO SCH (09:40)
[2017-11-03 10:32] LABS: MAGNESIUM 2.2 mg/dL (1.8-2.4)
[2017-11-03 12:24] VITALS: BMI 35.6
--- NOTE | 2017-11-03 12:24 | CON.NEP ---
Consult Consult Specialty:: Nephrology Referred by:: SHADIA Vernon Reason for Consultation:: CLARA/CKD - History of Present Illness Chief Complaint: Chest Pain History of Present Illness: This is a 56 year old gentleman with PMhx of CAD s/p cardiac stents, Hypertension (> 20 years), DM Type 2 (5 years with hx of diabetic retinopathy), CKD, Hypertension, Gout who presented with chest pain s/p his stress test and noted to have hyperkalemia and Cr of2. Pt reports that he has been told he has CKD in the past but does not follow with a kidney doctor. He has a remote history of kidney stones and sporadic use of nsaids for his gout. Pt denies any dysuria, urinary retention, flank pain, hematuria, N/V/D today No ACEi or diuretics in JAN. - History Source History Provided By: Patient Limitations to Obtaining History: No Limitations - Past Medical History Cardio/Vascular: Yes: CAD, HTN Renal/: Yes: Renal Inusuff Endocrine: Yes: Diabetes Mellitus - Alcohol/Substance Use Hx Alcohol Use: No - Smoking History Smoking history: Never smoked Home Medications - Allergies Allergies/Adverse Reactions: Allergies Allergy/AdvReac Type Severity Reaction Status Date / Time No Known Allergies Allergy Verified 11/01/17 11:04 - Home Medications Home Medications: Ambulatory Orders Colchicine 0.6 mg PO DAILY PRN 11/01/17 Amlodipine Besylate [Norvasc -] 2.5 mg PO DAILY tablet 11/03/17 Aspirin [ASA -] 81 mg PO DAILY tab.chew 11/03/17 Atorvastatin Ca [Lipitor] 20 mg PO HS tablet 11/03/17 Clopidogrel Bisulfate [Plavix -] 75 mg PO DAILY tablet 11/03/17 Heparin - 5,000 unit SQ TID vial 11/03/17 Insulin (Levemir) [Levemir Vial] 15 units SQ HS ml 11/03/17 Insulin Sliding Scale [Novolog Vial Sliding Scale -] 1 vial SQ ACHS units 11/03 Metoprolol Tartrate [Lopressor -] 50 mg PO BID tablet 11/03/17 Ranolazine [Ranexa -] 500 mg PO BID tab 11/03/17 Family Disease History - Family Disease History Family History: Unremarkable Review of Systems - Review of Systems Constitutional: reports: No Symptoms Eyes: reports: No Symptoms HENT: reports: No Symptoms Neck: reports: No Symptoms Cardiovascular: reports: No Symptoms Respiratory: reports: No Symptoms Gastrointestinal: reports: No Symptoms Genitourinary: reports: No Symptoms Musculoskeletal: reports: No Symptoms Integumentary: reports: No Symptoms Neurological: reports: No Symptoms Nephrology Consult - Height Height: 5 ft 10 in - Weight Weight: 112.548 kg - BMI Body Mass Index (BMI): 35.6 - Lab Results CBC,BMP: CBC, BMP 11/03/17 05:35 11/03/17 05:35 Anion Gap: Anion Gap Anion Gap 10 (8-16) 11/03/17 05:35 - Imaging Chest X-ray: Report Reviewed Ultrasound: Report Reviewed - Physical Examination Vital Signs: Vital Signs Temperature 98 F 11/03/17 09:37 Pulse Rate 75 11/03/17 09:37 Respiratory Rate 20 11/03/17 09:37 Blood Pressure 144/90 11/03/17 09:37 O2 Sat by Pulse Oximetry (%) 98 11/03/17 09:00 Constitutional: Yes: Well Nourished, No Distress, Calm Eyes: Yes: Conjunctiva Clear HENT: Yes: Atraumatic Neck: Yes: Supple, Trachea Midline Cardiovascular: Yes: Regular Rate and Rhythm Respiratory: Yes: Regular, CTA Bilaterally. No: Rales, Rhonchi Gastrointestinal: Yes: Normal Bowel Sounds, Soft Renal/: No: Anuria, Bladder Distention, CVA Tenderness - Left, CVA Tenderness - Right, Syed Present Edema: No Neurological: Yes: Alert, Oriented Assessment/Plan 56 year old gentleman with PMhx of CAD s/p cardiac stents, Hypertension (> 20 years), DM Type 2 (5 years with hx of diabetic retinopathy), CKD, Hypertension, Gout who presented with chest pain s/p his stress test and noted to have hyperkalemia and Cr of 2. #CKD Stage 3 likely due to Diabetic Nephropathy Given normal kidney size on US less likely that pt has ishcemic or hypertensive nephropathy Check urine studies, chadd UPCR to quantify proteinuria Renal function essentially stable on IVF now in an attempt to optimize pt for left heart cath given CKD and DM pt would benefit from ACEi but would hold off starting until after cath #Contrast Nephropathy Risk Stratification and prophylaxis risk of DAREN is 14% and risk of immediate dialysis is 0.12% as per Daren risk calculator developed by Ty et al continue isotonic saline would benefit from Mucomyst on day before and day of cath #Chest pain r/o ACS/CAD CP now resolved for left heart cath per cardiology #Hypertension Bp above goal but on saline trend BP start ACEi after cath #DM Type 2 management per primary #Gout avoid nsaids for pain control Thank you Oscar Ayon DO
[2017-11-03 14:08] LABS: URINE APPEARANCE CLEAR; URINE BILIRUBIN NEGATIVE (NEGATIVE); URINE BLOOD 1+ (NEGATIVE); URINE COLOR LTYELLOW; URINE GLUCOSE (UA) NEGATIVE (NEGATIVE); URINE KETONE NEGATIVE (NEGATIVE); URINE LEUK ESTERASE NEGATIVE (NEGATIVE); URINE NITRITE NEGATIVE (NEGATIVE); URINE PROTEIN NEGATIVE (NEGATIVE); URINE UROBILINOGEN NEGATIVE mg/dL (0.2-1.0)
[2017-11-03 14:56] LABS: URINE RBC 2 /hpf (0-3); URINE WBC <1 /hpf (3-5)
[2017-11-03] MEDS: SODIUM CHLORIDE 1,000 ML IV SCH ×2 (17:00→21:07)
[2017-11-03 17:33] LABS: URINE LEUK ESTERASE Negative (NEGATIVE)
[2017-11-03] MEDS: ACETYLCYSTEINE 20% 200MG/ML 30 ML VIAL *FOR ORAL / INH USE ONLY PO SCH ×2 (17:43→21:06)
[2017-11-03] MEDS: INSULIN DETEMIR 100 UNITS/ML MDV SQ SCH (21:07)
[2017-11-03] MEDS: ATORVASTATIN CA 20 MG TABLET (FP) PO SCH (21:08)
[2017-11-03] MEDS ORDERED: MAG HYDROX/AL HYDROX/SIMETH 30 ML UNIT-DOSE CUP PO ONE (21:12)
[2017-11-03] MEDS ORDERED: PT OWN MED DRAWER 7, Y5N ONE (21:16)
[2017-11-04] MEDS: HEPARIN NA (PORCINE) 5,000 UNITS/ML 1ML VIAL SQ SCH ×3 (05:55→22:06)
[2017-11-04] MEDS: INSULIN SLIDING SCALE (NOVOLOG) 1 VIAL SQ SCH ×4 (06:11→22:07)
[2017-11-04] MEDS ORDERED: PT OWN MED DRAWER 7, Y5N ONE ×2 (10:04→14:15)
[2017-11-04] MEDS: METOPROLOL TARTRATE 50 MG TABLET (FP) PO SCH ×2 (10:13→22:06)
[2017-11-04] MEDS: ASPIRIN 81 MG CHEWABLE TABLETS PO SCH (10:13)
[2017-11-04] MEDS: amLODIPine BESYLATE 5 MG TABLET (FP) PO SCH (10:14)
[2017-11-04] MEDS: ACETYLCYSTEINE 20% 200MG/ML 30 ML VIAL *FOR ORAL / INH USE ONLY PO SCH ×2 (10:14→22:07)
[2017-11-04] MEDS: RANOLAZINE E.R. 500 MG TABLET (FP) PO SCH ×2 (10:14→22:06)
[2017-11-04] MEDS: CLOPIDOGREL BISULFATE 75 MG TABLET (FP) PO SCH (10:14)
--- NOTE | 2017-11-04 10:35 | PN ---
Progress Note, Physician History of Present Illness: Denies further exertional dyspnea or angina on antianginals. Cr increased, await AM labs. - Current Medication List Current Medications: Active Medications Acetylcysteine (Mucomyst 20 Oral / Inh Use Only*) 1,200 mg PO BID [facility] Stop: 11/04/17 22:01 Last Admin: 11/04/17 10:14 Dose: 1,200 mg Amlodipine Besylate (Norvasc -) 5 mg PO DAILY [facility] Last Admin: 11/04/17 10:14 Dose: 5 mg Aspirin (Asa -) 81 mg PO DAILY [facility] Last Admin: 11/04/17 10:13 Dose: 81 mg Atorvastatin Calcium (Lipitor -) 20 mg PO HS [facility] Last Admin: 11/03/17 21:08 Dose: 20 mg Clopidogrel Bisulfate (Plavix -) 75 mg PO DAILY [facility] Last Admin: 11/04/17 10:14 Dose: 75 mg Heparin Sodium (Porcine) (Heparin -) 5,000 unit SQ TID [facility] Last Admin: 11/04/17 05:55 Dose: Not Given Sodium Chloride (Normal Saline -) 1,000 mls @ 100 mls/hr IV ASDIR [facility] Last Admin: 11/03/17 21:07 Dose: 100 mls/hr Insulin Aspart (Novolog Vial Sliding Scale -) 1 vial SQ [facility] PRN Reason: Protocol Last Admin: 11/04/17 06:11 Dose: Not Given Insulin Detemir (Levemir Vial) 15 units SQ HS [facility] Last Admin: 11/03/17 21:07 Dose: Not Given Metoprolol Tartrate (Lopressor -) 50 mg PO BID [facility] Last Admin: 11/04/17 10:13 Dose: 50 mg Ranolazine (Ranexa -) 500 mg PO BID [facility] Last Admin: 11/04/17 10:14 Dose: 500 mg - Objective Vital Signs: Vital Signs Temperature 98.4 F 11/04/17 06:00 Pulse Rate 73 11/04/17 06:00 Respiratory Rate 16 11/04/17 06:00 Blood Pressure 132/78 11/04/17 06:00 O2 Sat by Pulse Oximetry (%) 98 11/03/17 21:00 Constitutional: Yes: No Distress, Calm Neck: Yes: Supple Cardiovascular: Yes: Regular Rate and Rhythm Respiratory: Yes: Regular, CTA Bilaterally Gastrointestinal: Yes: Normal Bowel Sounds, Soft Edema: No Labs: CBC, BMP 11/03/17 05:35 11/04/17 09:03 INR, PTT INR 1.17 (0.82-1.09) H 11/02/17 09:38 - ....Imaging Ultrasound: Report Reviewed (Renal U/S: Medicorenal disease, no hydronephrosis) Problem List - Problems (1) Hypertension Code(s): I10 - ESSENTIAL (PRIMARY) HYPERTENSION Qualifiers: Hypertension type: essential hypertension Qualified Code(s): I10 - Essential (primary) hypertension (2) Chest pain due to psychological stress Code(s): R07.9 - CHEST PAIN, UNSPECIFIED; F43.9 - REACTION TO SEVERE STRESS, UNSPECIFIED (3) Status post coronary artery stent placement Code(s): Z95.5 - PRESENCE OF CORONARY ANGIOPLASTY IMPLANT AND GRAFT (4) Coronary artery disease Code(s): I25.10 - ATHSCL HEART DISEASE OF [place] CORONARY ARTERY W/O ANG PCTRS Qualifiers: Coronary Disease-Associated Artery/Lesion type: [place] artery [place] vs. transplanted heart: [place] heart Associated angina: with stable angina Qualified Code(s): I25.118 - Atherosclerotic heart disease of [place] coronary artery with other forms of angina pectoris (5) Gout Code(s): M10.9 - GOUT, UNSPECIFIED Qualifiers: Gout site: unspecified site (6) [id number] kidney injury Code(s): N17.9 - ACUTE KIDNEY FAILURE, UNSPECIFIED; N18.9 - CHRONIC KIDNEY DISEASE, UNSPECIFIED Qualifiers: Chronic kidney disease stage: stage 3 (moderate) Assessment/Plan Echocardiography dated 10/20/2016 revealed Mild LVH, mild LAE, normal LV systolic function, grade I diastolic dysfunction, mild mitral regurgitation [facility] angiography dated 04/2012 revealed proximal LAD <30% mid LAD 30-50% , LAD-D1 50-60%, proximal RCA 70-80%, mid RCA 80-90%, distal RCA 80-90%-> PCI proximal LCx 50-60%, distal LCx 80-90%, LCx-OM1 80-90%-> PCI Lexiscan Myoview showed moderate to large size inferior, infero-apical defect moderate ischemia with chest pain and EKG changes with vasodilator stress 1. Chest pain and dyspnea with claustrophobia, panic disorder 2. CAD s/p multivessel PCI (stent), angina pectoris 3. Gout 4. Acute on CKD 3 (diabetic nephropathy) with resolved hyperkalemia 5. Type 2 DM P: 1. Continue ASA 81 qd, Plavix 75 qd, Lopressor 50 bid, Norvasc 5 qd, Lipitor 20 qhs, Ranexa 500 bid 2. IV hydration, C to evaluate for ISR vs disease progression once renal fxn stabilizes, await AM labs 3. Appreciate renal input: #Contrast Nephropathy Risk Stratification and prophylaxis risk of DAREN is 14% and risk of immediate dialysis is 0.12% as per Daren risk calculator developed by Ty et al continue isotonic saline, would benefit from Mucomyst on day before and day of cath 4. Initiate CARA-I/ARB after cath
[2017-11-04 11:08] LABS: CALCIUM 8.9 mg/dL (8.5-10.1)
[2017-11-04 11:13] LABS: ANION GAP 11 (8-16); BILIRUBIN,TOTAL 0.6 mg/dL (0.2-1.0); CO2 19 mmol/L (21-32); CREATININE 2.1 mg/dL (0.7-1.3); GLUCOSE,RANDOM 99 mg/dL (74-106); SGOT/AST 12 U/L (15-37); SGPT/ALT 27 U/L (12-78); TOT PROT 8.1 g/dl (6.4-8.2)
[2017-11-04 11:14] LABS: ALK PHOS 112 U/L (45-117)
--- NOTE | 2017-11-04 12:38 | PN ---
Progress Note (short form) - Note Progress Note: Renal follow up for CLARA/CKD Pt seen and examined at the bedside awake and alert no acute complaints reports making a good amount of urine no CP, SOB at this time Vital Signs Temperature 98.4 F 11/04/17 06:00 Pulse Rate 73 11/04/17 06:00 Respiratory Rate 16 11/04/17 06:00 Blood Pressure 132/78 11/04/17 06:00 O2 Sat by Pulse Oximetry (%) 98 11/03/17 21:00 Intake & Output 11/01/17 11/02/17 11/03/17 11/04/17 23:59 23:59 23:59 23:59 Intake Total 150 1270 2100 700 Output Total 700 450 Balance 150 1270 1400 250 Weight 113.398 kg 111.811 kg 112.548 kg 112.491 kg NAD awake and alert CTA No LE edema CBC, BMP 11/03/17 05:35 11/04/17 09:03 Current Medications Acetylcysteine (Mucomyst 20 Oral / Inh Use Only*) 1,200 mg PO BID [facility] Stop: 11/04/17 22:01 Last Admin: 11/04/17 10:14 Dose: 1,200 mg Amlodipine Besylate (Norvasc -) 5 mg PO DAILY [facility] Last Admin: 11/04/17 10:14 Dose: 5 mg Aspirin (Asa -) 81 mg PO DAILY [facility] Last Admin: 11/04/17 10:13 Dose: 81 mg Atorvastatin Calcium (Lipitor -) 20 mg PO HS [facility] Last Admin: 11/03/17 21:08 Dose: 20 mg Clopidogrel Bisulfate (Plavix -) 75 mg PO DAILY [facility] Last Admin: 11/04/17 10:14 Dose: 75 mg Heparin Sodium (Porcine) (Heparin -) 5,000 unit SQ TID [facility] Last Admin: 11/04/17 05:55 Dose: Not Given Sodium Chloride (Normal Saline -) 1,000 mls @ 100 mls/hr IV ASDIR [facility] Last Admin: 11/03/17 21:07 Dose: 100 mls/hr Insulin Aspart (Novolog Vial Sliding Scale -) 1 vial SQ [facility] PRN Reason: Protocol Last Admin: 11/04/17 06:11 Dose: Not Given Insulin Detemir (Levemir Vial) 15 units SQ [facility] Last Admin: 11/03/17 21:07 Dose: Not Given Metoprolol Tartrate (Lopressor -) 50 mg PO BID [facility] Last Admin: 11/04/17 10:13 Dose: 50 mg Ranolazine (Ranexa -) 500 mg PO BID [facility] Last Admin: 11/04/17 10:14 Dose: 500 mg 56 year old gentleman with PMhx of CAD s/p cardiac stents, Hypertension (> 20 years), DM Type 2 (5 years with hx of diabetic retinopathy), CKD, Hypertension, Gout who presented with chest pain s/p his stress test and noted to have hyperkalemia and Cr of 2. #CKD Stage 3 likely due to Diabetic Nephropathy Renal function essentially stable and pt is making urine given US findings pt likely with CKD no significant proteinuria noted on UCPR can continue IVF for now if pt being optimized fro cardiac cath #Contrast Nephropathy Risk Stratification and prophylaxis risk of DAREN is 14% and risk of immediate dialysis is 0.12% as per Daren risk calculator developed by Ty et al continue saline and mucomyst if pt being prepped or cardiac cath #Chest pain r/o ACS/CAD CP now resolved for left heart cath per cardiology #Hypertension BP better today no CARA/ARB for now Thank you Oscar Ayon DO
--- NOTE | 2017-11-04 14:58 | PN ---
Physical Exam: SUBJECTIVE: Patient seen and examined. He denies chest pain, sob. OBJECTIVE: Vital Signs Period Temp Pulse Resp BP Sys/Green Pulse Ox Last 24 Hr 97.9 F-98.4 F 67-81 16-20 124-160/76-95 98-98 PE Neuro: alert, awake, cn 2-12intact Pulm: CTAB CV: S1 s2 rrr no mrg Abd: s nt nd + bs Ext: warm, no le edema, le venous stasis changes Laboratory Results - last 24 hr 11/04/17 11/04/17 11/04/17 05:54 06:30 09:03 Sodium 138 Cancelled Potassium 5.2 H D Cancelled Chloride 108 H Cancelled Carbon Dioxide 19 L Cancelled Anion Gap 11 Cancelled BUN 31 H Cancelled Creatinine 2.1 H Cancelled Creat Clearance w eGFR 32.60 Cancelled POC Glucometer 98 Random Glucose 99 Cancelled Calcium 8.9 Cancelled Magnesium 2.0 Total Bilirubin 0.6 D Cancelled AST 12 L Cancelled ALT 27 Cancelled Alkaline Phosphatase 112 Cancelled Total Protein 8.1 Cancelled Albumin 4.0 Cancelled Ur Leukocyte Esterase Urine WBC (Auto) Urine RBC (Auto) Ur Epithelial Cells Active Medications Generic Name Dose Route Start Last Admin Trade Name Freq PRN Reason Stop Dose Admin Acetylcysteine 1,200 mg 11/03/17 13:00 11/04/17 10:14 Mucomyst 20 Oral / Inh Use Only* PO 11/04/17 22:01 1,200 mg BID LUIS F Administration Amlodipine Besylate 5 mg 11/03/17 09:16 11/04/17 10:14 Norvasc - PO 5 mg DAILY LUIS F Administration Aspirin 81 mg 11/02/17 10:00 11/04/17 10:13 Asa - PO 81 mg DAILY LUIS F Administration Atorvastatin Calcium 20 mg 11/01/17 22:00 11/03/17 21:08 Lipitor - PO 20 mg HS LUIS F Administration Clopidogrel Bisulfate 75 mg 11/01/17 16:38 11/04/17 10:14 Plavix - PO 75 mg DAILY LUIS F Administration Heparin Sodium (Porcine) 5,000 unit 11/02/17 14:15 11/04/17 05:55 Heparin - SQ Not Given TID LUIS F Sodium Chloride 1,000 mls @ 100 mls/hr 11/02/17 13:45 11/03/17 21:07 Normal Saline - IV 100 mls/hr ASDIR LUIS F Administration Insulin Aspart 1 vial 11/02/17 16:30 11/04/17 12:00 Novolog Vial Sliding Scale - SQ Not Given ACHS [facility] Protocol Insulin Detemir 15 units 11/02/17 22:00 11/03/17 21:07 Levemir Vial SQ Not Given HS LUIS F Metoprolol Tartrate 50 mg 11/01/17 22:00 11/04/17 10:13 Lopressor - PO 50 mg BID LUIS F Administration Ranolazine 500 mg 11/02/17 10:00 11/04/17 10:14 Ranexa - PO 500 mg BID LUIS F Administration Imaging: - ECHO: 10/20/2016 revealed Mild LVH, mild LAE, normal LV systolic function, grade I diastolic dysfunction, mild mitral regurgitation - Lexiscan Myoview: large size inferior, infero-apical defect moderate ischemia with chest pain and EKG changes with vasodilator stress Assessment: 56 year old male with PMhx of CAD s/p cardiac stents, Hypertension ( > 20 years), DM Type 2 (5 years with hx of diabetic retinopathy), CKD, Hypertension, Gout who presented with chest pain s/p his stress test and noted to have hyperkalemia and Cr of 2. Plan: 1. CKD Stage 3 likely due to Diabetic Nephropathy - Cr stable here - Continue IVF until transfer for cath - TYESHA risk 14%, continue NS and mucomyst in preparation 2. Chest pain/ CAD multivessel disease s/p stent - LHC pending cr, monitor again tomorrow, if decreased, can go for cath, if not will need to arrange as outpt - ASA daily - Plavix daily - Lipitor Hs - Started Ranexa 500mg BID 3. Hypertension - Lopressor 50mg BID - Norvasc 5mg daily - Hold CARA/ARB until after cath 4. DM II - ISS, BGM ACHS 5. Gout 6. DVT ppx - Heparin sq 7. Hyperkalemia - Continue fluids - Change to potassium low diet Visit type - Emergency Visit Emergency Visit: Yes ED Registration Date: 11/01/17 Care time: The patient presented to the Emergency Department on the above date and was hospitalized for further evaluation of their emergent condition. - New Patient This patient is new to me today: Yes Date on this admission: 11/04/17 - Critical Care Critical Care patient: No
[2017-11-04] MEDS: SODIUM CHLORIDE 1,000 ML IV SCH (15:10)
[2017-11-04] MEDS: INSULIN DETEMIR 100 UNITS/ML MDV SQ SCH (22:06)
[2017-11-04] MEDS: ATORVASTATIN CA 20 MG TABLET (FP) PO SCH (22:06)
[2017-11-05] MEDS: SODIUM CHLORIDE 1,000 ML IV SCH ×2 (02:54→06:40)
[2017-11-05] MEDS: INSULIN SLIDING SCALE (NOVOLOG) 1 VIAL SQ SCH (06:39)
[2017-11-05] MEDS: HEPARIN NA (PORCINE) 5,000 UNITS/ML 1ML VIAL SQ SCH (06:39)
[2017-11-05 07:55] LABS: BASO # 0.1 # (0.1-1); BASO % 0.9 % (0-2.0); EOS # 0.2 # (0-4.5); EOS % 3.1 % (0-4.5); LYMPH # 1.2 (8-40); MCH 28.4 pg (25.7-33.7); MCHC 32.6 g/dl (32.0-35.9); MEAN PLT VOLUME 8.7 fl (7.5-11.1); MONO # 0.7 # (3.8-10.2); NEUT # 5.2 # (42.8-82.8); NEUT % 70.5 % (42.8-82.8); PLATELET COUNT 216 K/MM3 (134-434); RDW 13.8 % (11.9-15.9); WHITE BLOOD COUNT 7.4 K/mm3 (4.0-10.0)
[2017-11-05 08:31] LABS: ANION GAP 12 (8-16); CALCIUM 8.3 mg/dL (8.5-10.1); CO2 18 mmol/L (21-32); CREATININE 2.1 mg/dL (0.7-1.3); GLUCOSE,RANDOM 85 mg/dL (74-106); MAGNESIUM 1.8 mg/dL (1.8-2.4)
[2017-11-05 09:15] VITALS: BP 152/74; PULSE 70; TEMP 98
[2017-11-05] MEDS: CLOPIDOGREL BISULFATE 75 MG TABLET (FP) PO SCH (09:17)
[2017-11-05] MEDS: ASPIRIN 81 MG CHEWABLE TABLETS PO SCH (09:17)
[2017-11-05] MEDS: RANOLAZINE E.R. 500 MG TABLET (FP) PO SCH (09:17)
[2017-11-05] MEDS: amLODIPine BESYLATE 5 MG TABLET (FP) PO SCH (09:17)
[2017-11-05] MEDS: METOPROLOL TARTRATE 50 MG TABLET (FP) PO SCH (09:17)
--- NOTE | 2017-11-05 09:31 | PN ---
Progress Note, Physician History of Present Illness: Denies further exertional dyspnea or angina on antianginals. Renal function stabilized. - Current Medication List Current Medications: Active Medications Amlodipine Besylate (Norvasc -) 5 mg PO DAILY [facility] Last Admin: 11/05/17 09:17 Dose: 5 mg Aspirin (Asa -) 81 mg PO DAILY [facility] Last Admin: 11/05/17 09:17 Dose: 81 mg Atorvastatin Calcium (Lipitor -) 20 mg PO HS [facility] Last Admin: 11/04/17 22:06 Dose: 20 mg Clopidogrel Bisulfate (Plavix -) 75 mg PO DAILY [facility] Last Admin: 11/05/17 09:17 Dose: 75 mg Heparin Sodium (Porcine) (Heparin -) 5,000 unit SQ TID [facility] Last Admin: 11/05/17 06:39 Dose: Not Given Sodium Chloride (Normal Saline -) 1,000 mls @ 100 mls/hr IV ASDIR [facility] Last Admin: 11/05/17 06:40 Dose: 100 mls/hr Insulin Aspart (Novolog Vial Sliding Scale -) 1 vial SQ [facility] PRN Reason: Protocol Last Admin: 11/05/17 06:39 Dose: Not Given Insulin Detemir (Levemir Vial) 15 units SQ [facility] Last Admin: 11/04/17 22:06 Dose: Not Given Metoprolol Tartrate (Lopressor -) 50 mg PO BID [facility] Last Admin: 11/05/17 09:17 Dose: 50 mg Ranolazine (Ranexa -) 500 mg PO BID [facility] Last Admin: 11/05/17 09:17 Dose: 500 mg - Objective Vital Signs: Vital Signs Temperature 98 F 11/05/17 09:13 Pulse Rate 70 11/05/17 09:13 Respiratory Rate 20 11/05/17 09:13 Blood Pressure 152/74 11/05/17 09:13 O2 Sat by Pulse Oximetry (%) 98 11/05/17 09:00 Constitutional: Yes: No Distress, Calm Neck: Yes: Supple Cardiovascular: Yes: Regular Rate and Rhythm Respiratory: Yes: Regular, CTA Bilaterally Gastrointestinal: Yes: Normal Bowel Sounds, Soft Edema: No Labs: CBC, BMP 11/05/17 06:00 11/05/17 06:00 INR, PTT INR 1.17 (0.82-1.09) H 11/02/17 09:38 - ....Imaging EKG: Report Reviewed (Tele: NSR) Problem List - Problems (1) Hypertension Code(s): I10 - ESSENTIAL (PRIMARY) HYPERTENSION Qualifiers: Hypertension type: essential hypertension Qualified Code(s): I10 - Essential (primary) hypertension (2) Chest pain due to psychological stress Code(s): R07.9 - CHEST PAIN, UNSPECIFIED; F43.9 - REACTION TO SEVERE STRESS, UNSPECIFIED (3) Status post coronary artery stent placement Code(s): Z95.5 - PRESENCE OF CORONARY ANGIOPLASTY IMPLANT AND GRAFT (4) Coronary artery disease Code(s): I25.10 - ATHSCL HEART DISEASE OF [place] CORONARY ARTERY W/O ANG PCTRS Qualifiers: Coronary Disease-Associated Artery/Lesion type: [place] artery [place] vs. transplanted heart: [place] heart Associated angina: with stable angina Qualified Code(s): I25.118 - Atherosclerotic heart disease of [place] coronary artery with other forms of angina pectoris (5) Gout Code(s): M10.9 - GOUT, UNSPECIFIED Qualifiers: Gout site: unspecified site (6) [id number] kidney injury Code(s): N17.9 - ACUTE KIDNEY FAILURE, UNSPECIFIED; N18.9 - CHRONIC KIDNEY DISEASE, UNSPECIFIED Qualifiers: Chronic kidney disease stage: stage 3 (moderate) Assessment/Plan Echocardiography dated 10/20/2016 revealed Mild LVH, mild LAE, normal LV systolic function, grade I diastolic dysfunction, mild mitral regurgitation LHC& coronary angiography dated 04/2012 revealed proximal LAD <30% mid LAD 30-50% , LAD-D1 50-60%, proximal RCA 70-80%, mid RCA 80-90%, distal RCA 80-90%-> PCI proximal LCx 50-60%, distal LCx 80-90%, LCx-OM1 80-90%-> PCI Lexiscan Myoview showed moderate to large size inferior, infero-apical defect moderate ischemia with chest pain and EKG changes with vasodilator stress 1. Chest pain and dyspnea with claustrophobia, panic disorder 2. CAD s/p multivessel PCI (stent), angina pectoris 3. Gout 4. Acute on CKD 3 (diabetic nephropathy) with resolved hyperkalemia - stable 5. Type 2 DM P: 1. Continue ASA 81 qd, Plavix 75 qd, Lopressor 50 bid, Norvasc 5 qd, Lipitor 20 qhs, Ranexa 500 bid 2. IV hydration, [facility] to evaluate for ISR vs disease progression now that renal fxn stabilized 3. Appreciate renal input: #Contrast Nephropathy Risk Stratification and prophylaxis risk of DAREN is 14% and risk of immediate dialysis is 0.12% as per Daren risk calculator developed by Ty et al continue isotonic saline. 4. Initiate CARA-I/ARB after cath
--- NOTE | 2017-11-05 10:26 | DS ---
Physical Exam: SUBJECTIVE: Patient seen and examined. No issues overnight OBJECTIVE: Vital Signs Period Temp Pulse Resp BP Sys/Green Pulse Ox Last 24 Hr 97.7 F-98.1 F 70-77 18-20 124-154/66-87 98-98 PE Neuro: alert, awake, cn 2-12intact Pulm: CTAB CV: S1 s2 rrr no mrg Abd: s nt nd + bs Ext: warm, no le edema, le venous stasis changes Laboratory Results - last 24 hr 11/04/17 11/04/17 11/04/17 06:30 11:59 17:25 WBC RBC Hgb Hct MCV MCH MCHC RDW Plt Count MPV Absolute Neuts (auto) Absolute Lymphs (auto) Absolute Monos (auto) Absolute Eos (auto) Absolute Basos (auto) Neutrophils % Lymphocytes % Monocytes % Eosinophils % Basophils % Sodium 138 Potassium 5.2 H D Chloride 108 H Carbon Dioxide 19 L Anion Gap 11 BUN 31 H Creatinine 2.1 H Creat Clearance w eGFR 32.60 POC Glucometer 121 99 Random Glucose 99 Calcium 8.9 Phosphorus Magnesium Total Bilirubin 0.6 D AST 12 L ALT 27 Alkaline Phosphatase 112 Total Protein 8.1 Albumin 4.0 11/04/17 11/05/17 11/05/17 22:02 06:00 06:00 WBC 7.4 RBC 4.64 Hgb 13.2 Hct 40.4 MCV 87.0 MCH 28.4 MCHC 32.6 RDW 13.8 Plt Count 216 MPV 8.7 Absolute Neuts (auto) 5.2 L Absolute Lymphs (auto) 1.2 L Absolute Monos (auto) 0.7 L Absolute Eos (auto) 0.2 Absolute Basos (auto) 0.1 Neutrophils % 70.5 Lymphocytes % 16.4 D Monocytes % 9.1 Eosinophils % 3.1 Basophils % 0.9 Sodium 139 Potassium 5.1 Chloride 109 H Carbon Dioxide 18 L Anion Gap 12 BUN 30 H Creatinine 2.1 H Creat Clearance w eGFR POC Glucometer 78 Random Glucose 85 Calcium 8.3 L Phosphorus 4.0 Magnesium 1.8 Total Bilirubin AST ALT Alkaline Phosphatase Total Protein Albumin HOSPITAL COURSE: Date of Admission:11/01/17 Date of Discharge: 11/05/17 Minutes to complete discharge: 37 Discharge Summary Reason For Visit: CHEST PAIN Current Active Problems [id number] kidney injury (Acute) Chest pain (Acute) Chest pain due to psychological stress (Acute) Claustrophobia (Acute) Coronary artery disease (Acute) Gout (Acute) Hypertension (Acute) Status post coronary artery stent placement (Acute) Hospital Course: Initial Hospital Course: Briefly, this 56 year old male with a PMHx for HTN, CAD s/p multivessel stents x 7, IDDM, celiac disease, gout and anxiety/panic disorder. Patient was undergoing an outpatient stress test in the cardiology department when he experienced midsternal chest pressure radiating to left shoulder and left arm with shortness of breath and diaphoresis and lasted 2 minutes. Sent to the ED by Dr. Hawkins, burn nurse and treated for anxiety. He then underwent myoview stress testing which showed moderate to large inferior, inferoapical moderate ischemia with chest pain and ECG changes. Imaging: - ECHO: 10/20/2016 revealed Mild LVH, mild LAE, normal LV systolic function, grade I diastolic dysfunction, mild mitral regurgitation - Lexiscan Myoview: large size inferior, infero-apical defect moderate ischemia with chest pain and EKG changes with vasodilator stress Subsequent Hospital Course/Progress Note/Transfer summary: Assessment: 56 year old male with PMhx of CAD s/p cardiac stents, Hypertension ( > 20 years), DM Type 2 (5 years with hx of diabetic retinopathy), CKD, Hypertension, Gout who presented with chest pain s/p his stress test and noted to have hyperkalemia and Cr of 2. Plan: 1. CKD Stage 3 likely due to Diabetic Nephropathy - Cr stable here - Continue IVF until transfer for cath - TYESHA risk 14%, continue NS and mucomyst in preparation 2. Chest pain/ CAD multivessel disease s/p stent - Will transfer for [facility] today - ASA daily - Plavix daily - Lipitor Hs - Started Ranexa 500mg BID 3. Hypertension - Lopressor 50mg BID - Increased Norvasc 5mg daily - Hold CARA/ARB until after cath 4. DM II - Resume home insulin regimen 5. Gout 6. Hyperkalemia - Improved w/ fluids only - Change to potassium low diet Dispo: - Transfer for cardiac cath Condition: Stable - Instructions Diet, Activity, Other Instructions: Transfer to [facility] for Cardiac Cath Disposition: TRANSFER ACUTE CARE/OTHER HOSP - Home Medications Comprehensive Discharge Medication List: Ambulatory Orders Colchicine 0.6 mg PO DAILY PRN 11/01/17 Aspirin [ASA -] 81 mg PO DAILY tab.chew 11/03/17 Atorvastatin Ca [Lipitor] 20 mg PO HS tablet 11/03/17 Clopidogrel Bisulfate [Plavix -] 75 mg PO DAILY tablet 11/03/17 Heparin - 5,000 unit SQ TID vial 11/03/17 Insulin (Levemir) [Levemir Vial] 15 units SQ HS ml 11/03/17 Insulin Sliding Scale [Novolog Vial Sliding Scale -] 1 vial SQ [facility]CH[facility] units 11/03 Metoprolol Tartrate [Lopressor -] 50 mg PO BID tablet 11/03/17 Ranolazine [Ranexa -] 500 mg PO BID tab 11/03/17 Amlodipine Besylate [Norvasc -] 5 mg PO DAILY #0 tablet 11/05/17 This patient is new to me today: No Emergency Visit: Yes ED Registration Date: 11/01/17 Care time: The patient presented to the Emergency Department on the above date and was hospitalized for further evaluation of their emergent condition. Critical Care patient: No - Discharge Referral Referred to [facility] No
== END 2017-11-05 10:56 | disposition short-term general hospital (02) | DRG 303 ==
LOC: JER 10:48 → JERBED 17:19 → J4S 23:41
PROVIDERS: ADMIT Internal Medicine; ATTEND Nurse Practitioner Acute Care
DX: I25.10 Atherosclerotic heart disease of native coronary artery without angina pectoris (principal); N17.9 Acute kidney failure, unspecified; M10.9 Gout, unspecified; Z79.4 Long term (current) use of insulin; I34.0 Nonrheumatic mitral (valve) insufficiency; E87.5 Hyperkalemia; Z95.5 Presence of coronary angioplasty implant and graft; F40.240 Claustrophobia; E11.22 Type 2 diabetes mellitus with diabetic chronic kidney disease; I12.9 Hypertensive chronic kidney disease with stage 1 through stage 4 chronic kidney disease, or unspecified chronic kidney disease; F41.0 Panic disorder [episodic paroxysmal anxiety]; K90.0 Celiac disease; E83.42 Hypomagnesemia; E78.00 Pure hypercholesterolemia, unspecified; N18.3 Chronic kidney disease, stage 3 (moderate); E11.319 Type 2 diabetes mellitus with unspecified diabetic retinopathy without macular edema; E11.21 Type 2 diabetes mellitus with diabetic nephropathy
CPT/HCPCS: 36415; 71010-TC; 76775-TC; 76856-TC; 80048; 80053; 80061; 81003; 81015; 82550; 82570; 83036; 83721; 83735; 84100; 84156; 84300; 84443; 84484; 85025; 85610; 85730; 93005; 93010; 99285-25; J1644